=== PATIENT | female | born 1995 | race Caucasian/White ===

== ENCOUNTER 2019-12-06 12:58 | Emergency (ER) | payer SELFPAY ==
[2019-12-06] MEDS ORDERED: NA CHLORIDE 0.9% 1,000 ML ONE ×2 (13:56→14:10)
[2019-12-06 14:04] LABS: Urine Blood NEGATIVE (NEG); Urine Glucose NEGATIVE (NEG); Urine Protein 1+ (NEG); Urine Specific Gravity >1.030 (1.005-1.030)
[2019-12-06 14:04] LABS: Absolute Lymphocytes (CBC) 0.8 K/uL (0.7-4.9); Basophils % 0.3 % (0-1.3); Hematocrit 37.7 % (36.0-45.0); Lymphocytes % 8.5 % (15.3-44.8); MPV 8.1 fL (7.6-11.3); RBC Red Blood Cell Count 4.19 M/uL (3.86-4.86)
[2019-12-06 14:36] LABS: Platelet Estimate ADEQ; Urine White Blood Cell Casts OK
[2019-12-06 14:37] LABS: Blood Morphology Comment NOT SEEN (NOT SEEN)
--- NOTE | 2019-12-06 14:49 | EDPHYS ---
Physician Documentation [facility] Name: Maki Uribe Age: 24 yrs Sex: Female : 1995 Arrival Date: 12/06/2019 Time: 13:03 Bed 14 Private MD: Ambrose Quiroz HPI: 12/05 13:44 This 24 yrs old Female presents to ER via Ambulatory with complaints of sunshine Abdominal Pain, 12 wks . 13:44 The patient presents with abdominal pain right lower quadrant, abdominal distention in sunshine the lower abdomen. Onset: The symptoms/episode began/occurred 1 day(s) ago. The patient presents to the emergency department with abdominal pain, of the posterior aspect of right lateral abdomen, anterior aspect of right lateral abdomen and right lower quadrant, that started yesterday. The estimated gestational age is 12 weeks. course: care: none. Previous pregnancies: in previous pregnancies patient has had vaginal delivery. Associated signs and symptoms: The patient has no apparent associated signs or symptoms. 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 - Social history:: Smoking status: Patient denies any tobacco usage or history of. Patient/guardian denies using alcohol, street drugs, tobacco products. - Family history:: not pertinent. ROS: 13:46 Constitutional: Negative for fever, chills, and weight loss, Eyes: Negative for injury, sunshine pain, redness, and discharge, ENT: Negative for injury, pain, and discharge, Neck: Negative for injury, pain, and swelling, Cardiovascular: Negative for chest pain, palpitations, and edema, Respiratory: Negative for shortness of breath, cough, wheezing, and pleuritic chest pain, Back: Negative for injury and pain, : Negative for injury, bleeding, discharge, and swelling, MS/Extremity: Negative for injury and deformity, Skin: Negative for injury, rash, and discoloration, Neuro: Negative for headache, weakness, numbness, tingling, and seizure, Psych: Negative for depression, anxiety, suicide ideation, homicidal ideation, and hallucinations, Allergy/Immunology: Negative for hives, rash, and allergies, Endocrine: Negative for neck swelling, polydipsia, polyuria, polyphagia, and marked weight changes, Hematologic/Lymphatic: Negative for swollen nodes, abnormal bleeding, and unusual bruising. 13:46 Abdomen/GI: Positive for abdominal pain, abdominal cramps, of the right lower quadrant. Exam: 13:46 Constitutional: This is a well developed, well nourished patient who is awake, alert, sunshine and in no acute distress. Head/Face: Normocephalic, atraumatic. Eyes: Pupils equal round and reactive to light, extra-ocular motions intact. Lids and lashes normal. Conjunctiva and sclera are non-icteric and not injected. Cornea within normal limits. Periorbital areas with no swelling, redness, or edema. ENT: Nares patent. No nasal discharge, no septal abnormalities noted. Tympanic membranes are normal and external auditory canals are clear. Oropharynx with no redness, swelling, or masses, exudates, or evidence of obstruction, uvula midline. Mucous membranes moist. Neck: Trachea midline, no thyromegaly or masses palpated, and no cervical lymphadenopathy. Supple, full range of motion without nuchal rigidity, or vertebral point tenderness. No Meningismus. Chest/axilla: Normal chest wall appearance and motion. Nontender with no deformity. No lesions are appreciated. Cardiovascular: Regular rate and rhythm with a normal S1 and S2. No gallops, murmurs, or rubs. Normal PMI, no JVD. No pulse deficits. Respiratory: Lungs have equal breath sounds bilaterally, clear to auscultation and percussion. No rales, rhonchi or wheezes noted. No increased work of breathing, no retractions or nasal flaring. Back: No spinal tenderness. No costovertebral tenderness. Full range of motion. Female : Normal external genitalia. Skin: Warm, dry with normal turgor. Normal color with no rashes, no lesions, and no evidence of cellulitis. MS/ Extremity: Pulses equal, no cyanosis. Neurovascular intact. Full, normal range of motion. Neuro: Awake and alert, GCS 15, oriented to person, place, time, and situation. Cranial nerves II-XII grossly intact. Motor strength 5/5 in all extremities. Sensory grossly intact. Cerebellar exam normal. Normal gait. Psych: Awake, alert, with orientation to person, place and time. Behavior, mood, and affect are within normal limits. 13:46 Abdomen/GI: Inspection: distension, that is mild, Bowel sounds: normal, Palpation: mild abdominal tenderness, in the right lower quadrant, Liver: no appreciated palpable abnormalities, Hernia: not appreciated. Vital Signs: 13:15 BP 122 / 66; Pulse 74; Resp 17; Temp 99.0; Pulse Ox 100% ; Pain 9/10; ll1 13:51 BP 116 / 78; Pulse 68; Resp 16; Pulse Ox 100% on R/A; vc 15:08 BP 108 / 69; Pulse 75; Resp 15; Pulse Ox 100% on R/A; vc MDM: 13:12 Patient medically screened. [facility] 13:47 Data reviewed: vital signs, nurses notes, lab test result(s), radiologic studies, [facility] ultrasound. 13:47 Differential diagnosis: Ectopic , non-specific abd pain, Ureterolithiasis, sunshine urinary tract infection. Data interpreted: shelter monitor: not applicable for this patient encounter. rate is 74 beats/min, rhythm is normal sinus rhythm, Pulse oximetry: on room air is 100 %. Test interpretation: by ED physician or midlevel provider: USG PREGO, RIGHT RENAL. Counseling: I had a detailed discussion with the patient and/or guardian regarding: the historical points, exam findings, and any diagnostic results supporting the discharge/admit diagnosis, lab results, radiology results. 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 12/05 13:44 Order name: Quantitative Hcg [facility] 12/05 13:44 Order name: Abo/rh Typing; Complete Time: 14:44 [facility] 12/05 13:44 Order name: Basic Metabolic Panel [facility] 12/05 13:44 Order name: CBC with Diff; Complete Time: 14:44 [facility] 12/05 13:59 Order name: Urine Dipstick--Ancillary (enter results); Complete Time: 14:22 tt3 12/05 13:59 Order name: Urine --Ancillary (enter results); Complete Time: 14:22 tt3 12/05 13:44 Order name: Urine Test (obtain specimen); Complete Time: 13:59 [facility] 12/05 13:44 Order name: IV Saline Lock; Complete Time: 13:59 [facility] 12/05 13:44 Order name: Labs collected and sent; Complete Time: 13:59 [facility] 12/05 13:44 Order name: US Rp Exam Limited [facility] 12/05 14:14 Order name: CBC Smear Scan; Complete Time: 14:44 [facility] 12/05 15:03 Order name: Matter Eval Tm 1 [facility] 12/05 13:44 Order name: NPO; Complete Time: 13:59 [facility] 12/05 13:44 Order name: Urine Dipstick-Ancillary (obtain specimen); Complete Time: 13:59 [facility] Administered Medications: 14:07 Drug: NS 0.9% 1000 ml Route: IV; Rate: 1 bolus; Site: right antecubital; ll1 Point of Care Testing: Urine : 13:57 hCG Reading: Negative; Control Reading: Positive; jp3 Disposition: 12/06/19 14:49 Discharged to Home. Impression: Abdominal tenderness, related conditions, unspecified, first trimester - 11 week. - Condition is Stable. - Discharge Instructions: Abdominal Pain, Adult, First Trimester of , Ywkr-yb-Qhlw, Abdominal Pain, Adult, Zqqg-yi-Wigx, First Trimester of , Abdominal Pain During , Nagr-ko-Qkxx, Pelvic Rest. - Prescriptions for Diclegis 10- 10 mg Oral tablet,delayed release (DR/EC) - take 1 tablet by ORAL route 3 times per day and 2 tablets at bedtime; 60 tablet. Vitamin 27- 0.8 mg Oral Tablet - take 1 tablet by ORAL route once daily; 30 tablet. - Medication Reconciliation Form, Thank You Letter, Antibiotic Education, Prescription Opioid Use form. - Follow up: Private Physician; When: 2 - 3 days; Reason: Recheck today's complaints, Continuance of care, Re-evaluation by your physician. Follow up: Jah Higginbotham; When: 2 - 3 days; Reason: Recheck today's complaints, Continuance of care, Re-evaluation by your physician. - Problem is new. - Symptoms have improved. Signatures: Dispatcher [employer] Ambrose José MD MD cha Calcote, Vanessa, RN RN Emily Garcia RN RN ll1 Corrections: (The following items were deleted from the chart) 15:03 13:45 Transvaginal Study (Probe)+[email or web address] ordered. EDWA EDMS 15:25 14:49 12/06/2019 14:49 Discharged to Home. Impression: Abdominal tenderness; vc related conditions, unspecified, first trimester - 11 week. Condition is Stable. Discharge Instructions: Abdominal Pain, Adult, First Trimester of , Vdlq-ec-Wpgn, Abdominal Pain, Adult, Hynf-hq-Atrw, First Trimester of , Abdominal Pain During , Uijq-vn-Ebvy, Pelvic Rest. Prescriptions for Diclegis 10-10 mg Oral tablet,delayed release (DR/EC) - take 1 tablet by ORAL route 3 times per day and 2 tablets at bedtime; 60 tablet, Vitamin 27-0.8 mg Oral Tablet - take 1 tablet by ORAL route once daily; 30 tablet. and Forms are Medication Reconciliation Form, Thank You Letter, Antibiotic Education, Prescription Opioid Use. Follow up: Private Physician; When: 2 - 3 days; Reason: Recheck today's complaints, Continuance of care, Re-evaluation by your physician. Follow up: Jah Higginbotham; When: 2 - 3 days; Reason: Recheck today's complaints, Continuance of care, Re-evaluation by your physician. Problem is new. Symptoms have improved. sunshine
--- NOTE | 2019-12-06 14:49 | ER ---
Nurse's Notes [facility] Name: Maki Uribe Age: 24 yrs Sex: Female : 1995 Arrival Date: 12/06/2019 Time: 13:03 Bed 14 Private MD: Diagnosis: Abdominal tenderness; related conditions, unspecified, first trimester-11 week Presentation: 12/05 13:15 Chief complaint: Patient states: Awoke at 0630 with right flank pain with N/V. No ll1 fever, no dysuria. 12 weeks G2, P1. Coronavirus screen: Proceed with normal triage. Patient denies a cough. Patient denies shortness of breath or difficulty breathing. Patient denies measured and/or subjective temperature greater than 100.4F prior to today's visit. Patient denies travel on a cruise ship or to a country the [facility] currently lists as an affected area. Patient denies contact with known and/or suspected case of COVID-19. Ebola Screen: Patient denies travel to an Ebola-affected area in the 21 days before illness onset. Initial Sepsis Screen: Does the patient meet any 2 criteria? No. Patient's initial sepsis screen is negative. Does the patient have a suspected source of infection? No. Patient's initial sepsis screen is negative. Risk Assessment: Do you want to hurt yourself or someone else? Patient reports no desire to harm self or others. Onset of symptoms was December 06, 2019. 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 - Social history:: Smoking status: Patient denies any tobacco usage or history of. Patient/guardian denies using alcohol, street drugs, tobacco products. - Family history:: not pertinent. Screenin:29 Abuse screen: Denies threats or abuse. Nutritional screening: No deficits noted. ll1 Tuberculosis screening: No symptoms or risk factors identified. 13:56 Fall Risk None identified. vc Assessment: 13:28 General: Appears in no apparent distress. Behavior is calm, cooperative, appropriate ll1 for age. Pain: Complains of pain in right flank Pain currently is 8 out of 10 on a pain scale. Quality of pain is described as aching. Neuro: No deficits noted. Cardiovascular: No deficits noted. Respiratory: No deficits noted. GI: Abdomen is flat, Bowel sounds present X 4 quads. Abd is soft Abdomen is tender to palpation in right lower quadrant Reports lower abdominal pain, nausea, vomiting. : Denies burning with urination. 13:58 Reassessment: Patient appears in no apparent distress at this time. Patient and/or vc family updated on plan of care and expected duration. Pain level reassessed. Patient is alert, oriented x 3, equal unlabored respirations, skin warm/dry/pink. 15:08 Reassessment: Patient appears in no apparent distress at this time. Patient and/or vc family updated on plan of care and expected duration. Pain level reassessed. Patient is alert, oriented x 3, equal unlabored respirations, skin warm/dry/pink. Vital Signs: 13:15 BP 122 / 66; Pulse 74; Resp 17; Temp 99.0; Pulse Ox 100% ; Pain 9/10; ll1 13:51 BP 116 / 78; Pulse 68; Resp 16; Pulse Ox 100% on R/A; vc 15:08 BP 108 / 69; Pulse 75; Resp 15; Pulse Ox 100% on R/A; vc ED Course: 13:03 Patient arrived in ED. mr 13:08 Ambrose Uribe MD is Attending Physician. sunshine 13:18 Triage completed. ll1 13:18 Arm band placed on Patient placed in an exam room, on a stretcher. ll1 13:27 Shyanne Ashley, CALI is Primary Nurse. ll1 13:29 Patient has correct armband on for positive identification. Placed in gown. Bed in low ll1 position. Call light in reach. Side rails up X 1. 13:34 Door closed. Lights dimmed. Warm blanket given. ll1 13:55 Inserted saline lock: 20 gauge in right antecubital area, using aseptic technique. ll1 Blood collected. 13:57 Report received from shyanne Ashley RN. Pulse ox on. NIBP on. vc 13:57 Urine collected: clean catch specimen, clear, hua colored. jp3 14:48 Jah Higginbotham MD is Referral Physician. sunshine 15:03 Ultrasound completed. Patient tolerated well. Notified ED Physician . sg3 15:06 Matter Eval Tm 1 In Process Unspecified. EDMS 15:10 US Rp Exam Limited In Process Unspecified. EDMS Administered Medications: 14:07 Drug: NS 0.9% 1000 ml Route: IV; Rate: 1 bolus; Site: right antecubital; ll1 Point of Care Testing: Urine : 13:57 hCG Reading: Negative; Control Reading: Positive; jp3 Outcome: 14:49 Discharge ordered by . [facility] 15:25 Patient left the ED. vc Signatures: Dispatcher [employer] EDMS Ambrose Uribe MD MD cha Rivera, Minerva Chantal Alexis sg3 Jon Wright jp3 Zabrina Angel RN RN vc Shyanne Ashley RN RN ll1
[2019-12-06 14:52] LABS: BUN Blood Urea Nitrogen 10 mg/dL (7-18); Bicarbonate 23 mmol/L (21-32); Glucose Level 92 mg/dL (74-106); HCG, Quantitative 134934 mIU/mL (1-3); Potassium 3.6 mmol/L (3.5-5.1); Sodium Level 137 mmol/L (136-145)
[2019-12-06 15:32] VITALS: TEMP 99; O2SAT 100
[2019-12-06 15:34] VITALS: BP 108/69
--- NOTE | 2019-12-06 15:46 | RAD REPORT ---
EXAM DESCRIPTION: US - Matter Eval Tm 1 - 12/06/2019 3:06 pm CLINICAL HISTORY: ABD CRAMPING, Early . COMPARISON: Chest Single View dated 01/18/2019; Chest Single View dated 04/10/2018; Chest Single View dated 12/29/2017; Chest Single View dated 12/02/2017No comparisons FINDINGS: A single gestational sac is seen within the uterus. The shape of the sac is within normal limits for gestational age. Within the sac is a single pole with crown-rump length of 4.6 cm, c orrelating to estimated gestational age of 11 weeks 4 day. Estimated date of delivery is 06/22/2020. Heart rate is 159 BPM.. The placenta is not yet developed / visualized due to early gestational age. The maternal adnexa are within normal limits. Normal Doppler blood flow was demonstrated to right ova ry. The left ovary is obscured by bowel gas. IMPRESSION: Single live early intrauterine gestation with estimated gestational age of 11 weeks 4 da y, MILY 06/22/2020. No unusual or unexpected finding.
--- NOTE | 2019-12-06 15:46 | RAD REPORT ---
EXAM DESCRIPTION: US - Renal Ultrasound-Limited - 12/06/2019 3:10 pm CLINICAL HISTORY: RIGHT RENAL;Pain COMPARISON: No comparisons FINDINGS: Limited examination of the right kidney was requested. The right kidney is normal in size, shape and echotexture. The right kidney measures 10.0 x 5.3 x 4.0 cm. No hydronephrosis, focal mass or perinephric fluid.
== END 2019-12-06 15:25 | disposition home or self-care (01) ==
LOC: ER 12:58
DX: O26.891 Other specified pregnancy related conditions, first trimester (principal); R10.819 Abdominal tenderness, unspecified site; Z88.0 Allergy status to penicillin
CPT/HCPCS: 36415; 76775; 76801; 80048; 81003; 81025; 84702; 85025; 86900; 86901; 99284; J7030